=== PATIENT | male | born 1945 | race Caucasian/White ===

== ENCOUNTER 2016-11-30 14:15 | Emergency (ER) | payer BC, MEDICARE ==
[~2016-11-30] VITALS: Ht 177.8 cm; Wt 81.8 kg
[~2016-11-30 14:15] MED LIST: AMOXICILLIN875 MG PO; HCTZ 25MG TAB25 MG PO
[2016-11-30 14:18] VITALS: TEMP 97.8
[2016-11-30 14:57] VITALS: BP 128/85
[2016-11-30 15:01] LABS: ADJUSTED CALCIUM 9.4 mg/dL (8.4-10.2); ALANINE AMINOTRANSFERASE 37 U/L (21-72); ALBUMIN 4.3 gm/dL (3.5-5.0); ALKALINE PHOSPHATASE 82 U/L (50-136); ANION GAP 14 mmol/L (7-16); BILIRUBIN,TOTAL 1.1 mg/dL (0.0-1.0); BLOOD UREA NITROGEN 25 mg/dL (9-20); CALCIUM 9.6 mg/dL (8.4-10.2); CARBON DIOXIDE 25 mmol/L (22-30); CHLORIDE 99 mmol/L (98-107); CREATININE, serum 1.18 mg/dL (0.66-1.25); GLUCOSE 111 mg/dL (74-106); LIPASE 85 U/L (23-300); POTASSIUM 3.5 mmol/L (3.4-5.0); SODIUM 137 mmol/L (137-145); TOTAL PROTEIN 7.7 gm/dL (6.4-8.2)
[2016-11-30 15:12] LABS: B-TYPE NATRIURETIC PEPTIDE 73 pg/mL (0-125)
[2016-11-30 15:13] LABS: TROPONIN-I < 0.012 ng/mL (0.000-0.034)
[2016-11-30 15:51] LABS: BASO # 0.1 (0.0-0.2); BASO % 0.7 % (0.0-2.0); EOS # 0.2 (0.0-0.7); GRAN # 5.2 (1.4-6.5); GRAN % 63.6 % (42.2-75.2); HEMATOCRIT 45.6 % (42.0-52.0); HEMOGLOBIN 16.5 g/dl (13.5-18.0); LYMPH # 1.7 (1.2-3.4); LYMPH % 21.2 % (20.0-51.0); MEAN CELL VOLUME 92 fl (80.0-100.0); MEAN CORPUSCULAR HEMOGLOBIN 33 pg (27.0-31.0); MEAN CORPUSCULAR HGB CONC 36 g/dl (33.0-37.0); MEAN PLATELET VOLUME 10.7 fl (7.4-10.4); MONO % 12.3 % (1.7-9.3); PLATELET COUNT 239 K/mm3 (130-400); RED BLOOD COUNT 4.95 M/mm3 (4.20-5.60); REDCELL DISTRIBUTION WIDTH-CV 11.9 % (11.5-14.5); WHITE BLOOD COUNT 8.1 K/mm3 (4.8-10.8)
[2016-11-30] MEDS ORDERED: PRILOSEC 20MG20 MG PO (17:26)
[2016-11-30 17:40] VITALS: PULSE 67
== END 2016-11-30 18:19 | disposition home or self-care (01) ==
LOC: COL.ER 14:15
PROVIDERS: Emergency Medicine
DX: R07.2 Precordial pain (principal); Z79.82 Long term (current) use of aspirin
CPT/HCPCS: J7030